=== PATIENT | male | born 1940 | race Caucasian/White ===

== ENCOUNTER 2018-08-22 09:14 | Outpatient (CLI) | payer MEDICARE, OTHER ==
[~2018-08-22] VITALS: Ht 172.7 cm; Wt 79.8 kg
[2018-08-22 09:36] LABS: TOTAL HEMOGLOBIN 12.7 G/dl (14.0-18.0)
[2018-08-22] MEDS ORDERED: albuterol 2.5 MG/3 ML nebule NEB PRN (10:05)
== END 2018-08-22 23:59 | disposition home or self-care (01) ==
LOC: RT 09:14
PROVIDERS: ATTEND Internal Medicine Cardiovascular Disease
DX: I48.0 Paroxysmal atrial fibrillation (principal); R06.02 Shortness of breath; R06.09 Other forms of dyspnea; Z79.899 Other long term (current) drug therapy
CPT/HCPCS: 85018; 94010; 94727; 94729